=== PATIENT | female | born 2000 | race Caucasian/White ===

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

== ENCOUNTER → 2024-03-27 | Outpatient (CLI) | payer OTHER | LOC: M RAD 14:02 | PROVIDERS: ATTEND Emergency Medicine | DX: R10.9 Unspecified abdominal pain (principal); N88.9 Noninflammatory disorder of cervix uteri, unspecified ==